=== PATIENT | female | born 1960 | race Caucasian/White ===

== ENCOUNTER → 2017-09-10 | Outpatient (CLI) | payer OTHER ==
[~2017-09-10] MED LIST: BENADRYL25 M1 PO; DIOVAN HCT 1601 EACH PO; LEVAQUIN500 MG PO; ULTRAM50 MG PO
--- NOTE | 2017-09-10 12:27 | Diagnostic Imaging Report ---
PROCEDURE:KNEE RIGHT THREE VIEWS COMPARISON:None. INDICATIONS:SWOLLEN BACK OF KNEE FINDINGS: There are no fractures, dislocations, lytic or blastic lesions. The bones are well-mineralized. No suprapatellar joint effusion. Mild soft tissue swelling about the posterior knee. CONCLUSION: No acute fracture or dislocation of the right knee. Dictated by: Jalil Aguero M.D. on 09/10/2017 at 12:35 Electronically approved by: Jalil Aguero M.D. on 09/10/2017 at 12:35
== END ==
LOC: RAD 11:41
PROVIDERS: ATTEND Family Medicine
DX: M25.561 Pain in right knee (principal)

== ENCOUNTER → 2017-10-05 | Outpatient (CLI) | payer OTHER ==
--- NOTE | 2017-10-05 12:01 | Diagnostic Imaging Report ---
TECHNIQUE: Magnetic resonance imaging of the RIGHT KNEE was performed WITHOUT injected contrast. HISTORY: Right knee pain COMPARISON: None available. FINDINGS: LIGAMENTS AND TENDONS: ACL: Mucoid degeneration PCL: Intact Collateral ligaments: Intact Iliotibial band: Unremarkable Popliteal tendon: Intact Extensor mechanism: Intact JOINT: Menisci: Medial: Intact Lateral: Complex tear involving the body and posterior horn with a meniscal flap posteriorly. Articular Cartilage: Medial Compartment: Diffuse partial thickness cartilage loss Lateral Compartment: Diffuse partial thickness cartilage loss with high-grade focal defect to the weightbearing femoral condyle. Patellofemoral Compartment: Diffuse partial thickness cartilage loss Joint Fluid: Moderate joint effusion. Multilobular ganglion posterior knee joint. Ganglion within the popliteal tendon sheath. BONE: No focal or infiltrative bone marrow replacing abnormality. No acute fracture. SOFT TISSUES: Otherwise, unremarkable. IMPRESSION: Lateral meniscus complex tear with flap posteriorly. Tricompartmental cartilage loss, lateral tibiofemoral compartment predominant. Multilobular ganglion posterior knee joint extending 6 cm. Signed by: Dr. Hao De Leon M.D. on 10/05/2017 11:57 AM
== END ==
LOC: MRI 09:47
PROVIDERS: ATTEND Specialist
DX: M23.91 Unspecified internal derangement of right knee (principal)